=== PATIENT | female | born 1985 | race Caucasian/White ===

== ENCOUNTER → 2024-09-05 07:39 | Outpatient (REF) | payer BC, SELFPAY ==
[2024-09-05 10:51] LABS: Mean Corp Hgb Conc. 28.3 g/dL (33.0-37.0); Mean Corpuscular Hgb 27.7 pg (27.0-31.0); Mean Corpuscular Volume 98.1 fL (81.0-99.0); Red Blood Cell Count 4.69 10^6/uL (4.20-5.40); Red Cell Dist. Width 13.5 % (11.5-14.5)
[2024-09-05 11:08] LABS: Platelet Count 309 10^3/uL (130-400)
[2024-09-05 11:09] LABS: Mean Platelet Volume 13.3 fL (7.4-10.4)
[2024-09-05 11:10] LABS: % Basophils 1.3 % (0-2); % Eosinophils 4.6 % (0-6); % Immature Granulocytes 0.6 % (0-0.5); % Lymphocytes 42.6 % (20.5-51.1); % Monocytes 7.6 % (1.7-9.3); % Neutrophils 43.3 % (42.2-75.2); Absolute Basophils 0.1 10^3/uL (0-0.2); Absolute Eosinophils 0.3 10^3/uL (0-0.7); Absolute Monocytes 0.5 10^3/uL (0.1-0.6); Nucleated Red Blood Cells % 0 %
[2024-09-05 11:32] LABS: ALT (SGPT) 18 U/L (0-35); AST (SGOT) 25 U/L (14-36); Albumin 5.1 g/dl (3.5-5.0); Alkaline Phosphatase 53 U/L (38-126); Blood Urea Nitrogen 11 mg/dl (7-17); Calcium 9.8 mg/dl (8.4-10.2); Carbon Dioxide 26 mmol/L (22-30); Chloride 101 mmol/L (98-107); Glucose 70 mg/dl (70-99); HDL Cholesterol 60 mg/dl; LDL Cholesterol, Calculated 85 mg/dl; Potassium 5.5 mmol/L (3.5-5.1); Sodium 136 mmol/L (135-145); Total Bilirubin 1.8 mg/dl (0.2-1.3); Total Cholesterol 158 mg/dl (50-199); Total Protein 8.1 g/dl (6.3-8.2); Triglyceride 65 mg/dl (10-149); Very Low Density Lipoprotein 13 mg/dl (0-30); eGFR > 60.00
== END ==
LOC: REG 07:39
PROVIDERS: ATTENDING PHYSICIAN Family Medicine
DX: Z00.00 Encounter for general adult medical examination without abnormal findings (principal); Q89.01 Asplenia (congenital); D58.2 Other hemoglobinopathies; Z13.220 Encounter for screening for lipoid disorders
CPT/HCPCS: 36415; 80053; 80061; 85025

== ENCOUNTER → 2024-09-13 08:03 | Outpatient (REF) | payer BC, SELFPAY ==
[2024-09-13 09:53] LABS: Potassium 4.8 mmol/L (3.5-5.1)
== END ==
LOC: REG 08:03
PROVIDERS: ATTENDING PHYSICIAN Family Medicine
DX: E87.5 Hyperkalemia (principal)
CPT/HCPCS: 36415; 84132

== ENCOUNTER → 2024-10-21 09:49 | Outpatient (REF) | payer BC, SELFPAY | LOC: RAD 09:49 | PROVIDERS: ATTENDING PHYSICIAN Physician Assistant | DX: J22 Unspecified acute lower respiratory infection (principal) | CPT/HCPCS: 71046 ==

== ENCOUNTER → 2024-12-13 12:32 | Outpatient (REF) | payer BC, SELFPAY | LOC: WDC 12:32 | PROVIDERS: ATTENDING PHYSICIAN Nurse Practitioner Women's Health | DX: Z12.31 Encounter for screening mammogram for malignant neoplasm of breast (principal) | CPT/HCPCS: 77063; 77067 ==

== ENCOUNTER → 2025-03-21 08:44 | Outpatient (REF) | payer BC, SELFPAY | LOC: WDC 08:44 | PROVIDERS: ATTENDING PHYSICIAN Nurse Practitioner Women's Health; FAMILY PHYSICIAN Family Medicine | DX: R92.2 Inconclusive mammogram (principal) | CPT/HCPCS: 76641 ==

== ENCOUNTER → 2025-04-24 12:36 | Outpatient (REF) | payer BC, SELFPAY ==
[2025-04-24 14:11] LABS: Hematocrit 44.4 % (37.0-47.0); Hemoglobin 12.9 g/dL (12.0-16.0); Mean Corp Hgb Conc. 29.1 g/dL (33.0-37.0); Mean Corpuscular Volume 96.3 fL (81.0-99.0); Red Cell Dist. Width 14.5 % (11.5-14.5)
[2025-04-24 14:40] LABS: HCG, Serum Qualitative Screen Negative
[2025-04-24 15:22] LABS: Nucleated Red Blood Cells % 0.2 %; Platelet Count 294 10^3/uL (130-400)
== END ==
LOC: REG 12:36
PROVIDERS: ATTENDING PHYSICIAN Nurse Practitioner Women's Health; FAMILY PHYSICIAN Family Medicine
DX: N92.0 Excessive and frequent menstruation with regular cycle (principal)
CPT/HCPCS: 36415; 84443; 84703; 85025

== ENCOUNTER → 2025-04-25 13:15 | Outpatient (REF) | payer BC, SELFPAY | LOC: HWRAD 13:15 | PROVIDERS: ATTENDING PHYSICIAN Nurse Practitioner Women's Health; FAMILY PHYSICIAN Family Medicine | DX: N92.0 Excessive and frequent menstruation with regular cycle (principal) | CPT/HCPCS: 76830; 76856 ==